=== PATIENT | female | born 1955 | race Caucasian/White ===

== ENCOUNTER 2018-02-26 15:53 | Inpatient (IN) ==
[2018-02-26] MEDS ORDERED: ZOFRAN IV PRN (16:45)
[2018-02-26] MEDS: NS 1,000 ML IV SCH (18:36)
--- NOTE | 2018-02-26 19:39 | Diag Imaging Result Doc PS360 ---
EXAM: CT ABD/PELVIS W/PO AND IV CON INDICATION: Intractable RUQ pain/ fever/ leukocytosis TECHNIQUE: This exam was performed using automated exposure control, adjustment of mA or kV according to patient size, and/or use of iterative reconstruction technique. COMPARISON: None. FINDINGS: There is diverticulosis throughout the colon, and there is a short segment of the colon at the hepatic flexure that exhibits marked thickening and severe pericolonic inflammatory stranding. This appears to be emanating from a diverticulum and is consistent with acute diverticulitis. There is a solitary tiny droplet of gas at the tip of the diverticulum. It is unclear if this is intraluminal gas. A small microperforation is possible, however. No other free abdominal gas is appreciated and no well organized abscess is identified. The GI tract is essentially unremarkable, otherwise. The liver, gallbladder, spleen, pancreas, adrenal glands, kidneys, and urinary bladder are essentially unremarkable. There is a coarsely calcified nodule at the uterine fundus consistent with a small calcified uterine fibroid. The reproductive tract is essentially unremarkable, otherwise. The urinary bladder is unremarkable. There is trace free fluid layering in the pelvis. IMPRESSION: 1.Severe right-sided colonic diverticulitis at the hepatic flexure with a tiny droplet of gas near the end of the inflamed diverticulum. Although questionable, it could be extraluminal suggesting a microperforation. 2.Other external/nonacute findings detailed above. Electronically signed by Carlos Ramírez 02/26/2018 7:37 PM
[2018-02-26] MEDS ORDERED: MORPHINE IV PRN (20:11)
[2018-02-26] MEDS: ZOSYN 3.375 GM in NS 50 ML IV SCH (21:08)
[2018-02-26] MEDS: TYLENOL PO PRN (21:20)
[2018-02-26] MEDS: HUMALOG SUBQ SCH (21:26)
--- NOTE | 2018-02-26 21:30 | HISTORY AND PHYSICAL ---
PRIMARY CARE PHYSICIAN: Dr. Anil Nunez. CHIEF COMPLAINT: Intractable abdominal pain. HISTORY OF PRESENT ILLNESS: 62-year-old white female with past medical history significant for diabetes, hypertension, hypertriglyceridemia, hyperlipidemia, and low HDL presents for evaluation of above-mentioned symptoms. Current history of present illness began on Thursday night. At that time, patient states she developed right upper quadrant pain. The pain persisted but was reasonably controlled throughout the day Thursday. Yesterday pain increased. She developed low- grade fevers. The patient considered emergency department evaluation yesterday evening, but opted for evaluation in clinic today. Throughout the day today, patient stated she continued to have low-grade fevers as well as abdominal discomfort. She has had mild nausea but denies vomiting. The pain is increased with flexion at the waist and movement. She denies a specific associated with eating, but does note anorexia over this last several days. She has had similar episodes in the past, but none to this degree. She denies a change in bowel movements, hematochezia, melena, hematuria, pyuria, and urinary frequency. Because of patient's condition, patient was seen in the office today. Because of intractable abdominal discomfort, she was immediately admitted. CT scan was performed revealing acute diverticulitis. Patient will be admitted to the hospital for full evaluation and management of this condition. PAST MEDICAL HISTORY: 1. Allergic rhinitis. 2. Anxiety. 3. Type 2 diabetes. 4. Metabolic syndrome. 5. History of transaminitis secondary to nonalcoholic fatty liver disease. 6. Hypertension. 7. Hypertriglyceridemia. 8. Hyperlipidemia. 9. Irritable bowel syndrome. 10. Low HDL. 11. Osteopenia. 12. Overweight. 13. History of colonic polyps. 14. History of appendectomy in 1965. CURRENT MEDICATIONS: 1. Calcium plus vitamin D once daily. 2. Fluticasone nasal spray 2 sprays each nostril daily as needed. 3. Metformin ER 500 mg daily. 4. Singulair 10 mg daily as needed. 5. Nystatin powder as needed. 6. Rosuvastatin 5 mg daily. ALLERGIES: Patient states she is allergic to Lipitor, losartan, and simvastatin. SOCIAL HISTORY: The patient denies tobacco and illicit drug use. She has approximately 4 drinks per year. 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 She enjoys reading, hinduism, and guarding. She does not exercise routinely. FAMILY HISTORY: Patient's father passed at age 78 secondary to complications of nonalcoholic cirrhosis. He had a history of an acute myocardial infarction at age 66, stroke at age 66 with loss of eyesight and diabetes. Patient's mother passed at age 70 secondary to complications of an unknown cause. She had a history of lymphoma and arrhythmia. REVIEW OF SYSTEMS: A 12 point review of systems was performed. Pertinent positives and negatives noted in history present illness. PHYSICAL EXAMINATION: Temperature 100.8 degrees, heart rate 107, respirations 16, blood pressure is 133/74. GENERAL: Well nourished, well developed, no acute distress. HEENT: Normocephalic, atraumatic. Pupils equal, round, reactive to light. Extraocular muscles intact. Sclerae anicteric. [place] conjunctivae. Oral and nasopharynx clear without exudate. NECK: Supple. No lymphadenopathy. No thyromegaly. No bruits auscultated. CARDIOVASCULAR: Slightly tachycardic. Regular rhythm. No significant murmurs, rubs, or gallops. PULMONARY: Clear to auscultation bilaterally. ABDOMEN: Soft. Significant tenderness in the right upper quadrant with guarding, but no rebound. Decreased bowel sounds. EXTREMITIES: Moves all extremities well. No significant clubbing, cyanosis, or edema. NEUROLOGIC: Cranial nerves 2-12 grossly intact. Motor and sensory grossly intact. PSYCHOLOGIC: Appropriate. LABORATORY DATA: White blood cell count 15.6, hemoglobin 14.1, hematocrit 45.1, platelet count 191,000. Sodium 135, potassium 4.6, chloride 100, bicarb 27, BUN 8, creatinine 0.5, glucose 101, calcium 9.7, total bilirubin 1.4, total protein 7.2, albumin 4.3, alkaline phosphatase 89, AST 13, ALT 27. Urinalysis revealed 3+ leukocytes, large ketones, rare bacteria. CT scan of the abdomen and pelvis revealed severe right-sided colonic diverticulitis at the hepatic flexure with a tiny droplet of gas near the end of the inflamed diverticulum. Although questionable, it could be extraluminal suggesting a micro perforation. ASSESSMENT AND PLAN: 62-year-old white female presented to my office with intractable abdominal discomfort. Full evaluation revealed low-grade fever, tachycardia, leukocytosis, and CT scan suggestive of severe right-sided colonic diverticulitis with possible micro perforation. Patient will be admitted to the hospital for full evaluation and management of this condition. 1. Admit to General Medicine. 2. Severe right-sided colonic diverticulitis with possible micro perforation-at present time, patient is clinically stable. We will initiate aggressive medical intervention including Zosyn, hydration, and as needed pain medications. We will place patient n.p.o. for now. We will consult Dr. Cuellar in the morning. At this point, an emergent surgical intervention is not warranted. The patient may, however, require surgical intervention in the near future if she does not achieve rapid resolution. 3. Hypertension-patient has been treated with amlodipine in the past. For now, we will hold this. 4. Diabetes-we will hold patient's metformin for now. We will start patient on sliding scale insulin. 5. Hyperlipidemia-we will hold patient's rosuvastatin for now. 6. Fluid, electrolytes, nutrition-we will monitor electrolytes. Normal saline at 75 mL an hour, n.p.o. 7. Prophylaxis. The patient will be placed on SCDs. Once surgery has been ruled out, we will initiate Lovenox therapy. cc: Anil Nunez MD
[2018-02-27] MEDS: ZOSYN 3.375 GM in NS 50 ML IV SCH ×4 (01:27→20:35)
[2018-02-27 06:06] LABS: BASO# 0.03 X1000 (0.0-0.2); BASO% 0.3 % (0.0-0.8); EOS# 0.17 X1000 (0.0-0.7); EOS% 1.9 % (0.0-10.0); HEMATOCRIT 39.9 % (37.0-47.0); HEMOGLOBIN 12.7 g/dL (12.0-16.0); IMM GRAN# 0.02 X1000 (0.0-0.04); IMM GRAN% 0.2 % (0.0-0.5); LYMPH# 1.93 X1000 (1.2-3.4); LYMPH% 21.4 % (20.5-51.1); MCH 27.7 PG (27-31); MCHC 31.8 g/dL (33-37); MCV 86.9 FL (81-99); MONO# 0.51 X1000 (0.11-0.59); MONO% 5.6 % (1.7-9.3); MPV 10.2 FL (7.4-10.4); NEUT# 6.37 X1000 (1.4-6.5); NEUT% 70.6 % (42.2-75.2); PLT 179 X1000 (130-400); RBC 4.59 XMIL (4.2-5.4); RDW 14.6 % (11.5-14.5); WBC 9.03 X1000 (4.8-10.8)
[2018-02-27 06:09] LABS: INR 1.1; PROTIME 15.1 Seconds (11.0-16.0)
[2018-02-27 06:10] LABS: PTT 39.3 Seconds (22.3-41.8)
[2018-02-27] MEDS: HUMALOG SUBQ SCH ×3 (06:35→17:35)
[2018-02-27 06:38] LABS: AGAP 13; ALB/GLOB RATIO 1.4; ALKALINE PHOSPHATASE 93 U/L (32-104); BUN 9 mg/dL (8-22); CALCIUM 8.8 mg/dL (8.8-10.2); CHLORIDE 103 mmol/L (98-107); COSMO 278; CREATININE 0.7 mg/dL (0.5-0.9); ESTIMATED GFR > 60; GLUCOSE 90 mg/dL (70-104); GOT 14 U/L (10-30); GPT 21 U/L (10-36); POTASSIUM 4.1 mmol/L (3.5-5.1); SODIUM 140 mmol/L (136-145); TCO2 24 mmol/L (25-35); TOTAL BILIRUBIN 1.45 mg/dL (0.20-1.00); TOTAL PROTEIN 6.8 g/dL (6.3-8.3)
[2018-02-27] MEDS: LOVENOX SUBQ SCH (11:51)
[2018-02-27] MEDS: NS 1,000 ML IV SCH (11:51)
[2018-02-27] MEDS: SINGULAIR PO SCH (11:51)
--- NOTE | 2018-02-27 18:30 | CONSULTATION ---
DATE OF CONSULTATION: 02/27/2018 Miss Samantha Sevilla is a 62-year-old white female patient Dr. Anil Nunez who has been experiencing right upper quadrant abdominal pain and some distention. She was evaluated with a CT scan of her abdomen and pelvis which suggested acute diverticulitis at the hepatic flexure with possible droplet of free air. We were asked to evaluate her. It must be noted that her pain began earlier in the week and it just persisted causing her to be evaluated by Dr. Nunez when she was admitted because of her complicated acute diverticulitis. PAST MEDICAL HISTORY: Type 2 diabetes, fatty liver disease, hypertension, hypertriglyceridemia, hyperlipidemia, obesity, history of appendectomy 1964. MEDICATIONS: Calcium, metformin, Singulair, Nystatin powder and a statin drug. ALLERGIES: Lipitor, losartan and simvastatin. SOCIAL HISTORY: Her is at the bedside. Evidently she has a child that is been operated on for diverticulitis. REVIEW OF SYSTEMS: A 14-point review of systems was performed and was essentially negative except for the history of present illness. PHYSICAL EXAM: General: Ms. Sevilla does not look acutely ill. She is sitting up in her chair at her bedside. She is awake, cooperative. HEENT: No jaundice. No oral lesions. Satisfactory dentition. No cervical or supraclavicular lymphadenopathy. She has telemetry in place. Heart: Has a regular rate. Lungs: Clear. Abdomen: Was mildly tender in the right upper quadrant slightly distended but not tightly so. Rectal exam was not performed. She does have palpable peripheral pulses. No peripheral edema. Neurologic: She is alert and oriented x3 and appropriate. LABS: Her white blood cell count is normal this morning, hematocrit is 40%. Coagulations within normal limits as are her electrolytes. PLAN: She will be given a diet of liquids and her IV Zosyn continues. She has clinically improved overnight. cc: MD Anil Youssef MD
[2018-02-27] MEDS: TYLENOL PO PRN (20:43)
[2018-02-28] MEDS: NS 1,000 ML IV SCH ×2 (03:41→17:58)
[2018-02-28] MEDS: ZOSYN 3.375 GM in NS 50 ML IV SCH ×4 (05:47→22:45)
[2018-02-28] MEDS: HUMALOG SUBQ SCH ×4 (06:47→22:44)
[2018-02-28] MEDS: SINGULAIR PO SCH (09:54)
[2018-02-28] MEDS: LOVENOX SUBQ SCH (09:54)
[2018-02-28] MEDS: COLACE PO SCH ×2 (09:56→22:44)
--- NOTE | 2018-02-28 10:32 | PROGRESS NOTE ---
DATE: 02/28/2018 SUBJECTIVE: Samantha Sevilla is a 62-year-old white female, patient of Dr. Anil Nunez, who has been admitted with diverticulitis in the hepatic flexure of her colon. There might be a microperforation. She has been placed on IV antibiotics, and clinically she has improved since admission. Her heart rate is 72, blood pressure 109/59, O2 saturation 97%, she is afebrile. She still has some tenderness in the right upper quadrant on exam. She was started on a GI soft diet yesterday per Dr. Nunez. IV Zosyn continues. cc: MD Anil Youssef MD
--- NOTE | 2018-02-28 12:48 | PROGRESS NOTE ---
DATE: 02/28/2018 SUBJECTIVE: Overall, the patient states she continues to do reasonably well. She has, however, developed an increase in pain in her right upper quadrant. The patient tolerated a full liquid diet yesterday. She denies fevers, chills, nausea, vomiting, shortness of breath, or chest discomfort. OBJECTIVE: Temperature maximum 98.3 degrees. Heart rate 65 to 72. Respirations 14 to 20. Blood pressure 100 to 117 over 58 to 59. General: Well nourished, well developed, in no acute distress. Cardiovascular: Regular rate and rhythm. No significant murmurs, rubs, or gallops. Pulmonary: Clear to auscultation bilaterally. Abdomen: Soft. Tenderness in the right upper quadrant with guarding. No rebound. Positive bowel sounds. Extremities: Moves all extremities well. No significant clubbing, cyanosis, or edema. Dermatologic: Evaluation reveals no evidence of rash. LABORATORY DATA: None. ASSESSMENT AND PLAN: 1. Severe right-sided colonic diverticulitis with possible microperforation. -- In the setting of increasing abdominal discomfort, I do not feel discharge is appropriate at the present time. For now, we will continue Zosyn and hydration. She has morphine to be used if necessary. We will advance diet to a GI soft. We will consider discharge home in the morning, depending on her clinical response. 2. Hypertension. -- The patient's blood pressure is controlled without medical intervention. 3. Diabetes. -- The patient's metformin has been held. Blood sugars are reasonably controlled with sliding scale insulin. 4. Hyperlipidemia. -- We will continue to hold the patient's rosuvastatin for now. We will plan to resume this at discharge. 5. Disposition. -- At this point, the patient continues to require senior living care in a hospital setting. We will plan discharge home once appropriate. cc: Anil Nunez MD
[2018-03-01] MEDS: ZOSYN 3.375 GM in NS 50 ML IV SCH ×2 (05:55→08:51)
[2018-03-01] MEDS: HUMALOG SUBQ SCH (06:21)
[2018-03-01 07:38] VITALS: BP 125/64
--- NOTE | 2018-03-01 08:07 | PROGRESS NOTE ---
DATE: 03/01/2018 SUBJECTIVE: Ms. Samantha Sevilla is hospitalized for diverticulitis at the hepatic flexure. She still had some tenderness in the right upper quadrant yesterday. She continues to receive IV Zosyn. Her last white blood cell count was within normal limits. She ate about 50% of her meals yesterday. She did have one bowel movement yesterday. She is sleeping this morning and I did not wake her. OBJECTIVE: Her heart rate 77, blood pressure 125/64, O2 saturation 100%. She is afebrile on IV Zosyn. PLAN: I agree with IV antibiotics. She is on a GI soft diet. Her white blood cell count last checked was within normal limits. I feel that if she clinically continues to improve. She will be discharged per Dr. Nunez on p.o. antibiotics. If her symptoms persist, we need to think about resection. cc: MD Anil Youssef MD
[2018-03-01] MEDS: COLACE PO SCH (08:47)
[2018-03-01] MEDS: SINGULAIR PO SCH (08:47)
--- NOTE | 2018-03-02 06:32 | DISCHARGE SUMMARY ---
ADMISSION DATE: 02/26/2018 DISCHARGE DATE: 03/01/2018 ADMISSION DIAGNOSIS: Intractable abdominal pain. DISCHARGE DIAGNOSES: 1. Severe right-sided colonic diverticulosis with possible micro perforation, improved clinically. 2. Hypertension present on arrival. 3. Diabetes, present on arrival. 4. Hyperlipidemia, present on arrival. CONSULTATIONS: Dr. Cuellar with General Surgery was consulted for further evaluation and management of diverticulitis with microperforation. PROCEDURES: CT scan of the abdomen and pelvis was performed on 02/26/2018 which revealed severe right-sided colonic diverticulitis at the hepatic flexure with a tiny droplet of gas near the end of the inflamed diverticulum. Although questionable, it could be extraluminal suggesting a micro perforation. HISTORY AND PHYSICAL EXAMINATION: See admit note. Vital Signs: Physical examination prior to discharge, temperature 98.1 degrees, heart rate 77, respirations 16, and blood pressure is 125/64. General: Well nourished, well developed in no acute distress. Cardiovascular: Regular rate and rhythm. No significant murmurs, rubs, or gallops. Pulmonary: Clear to auscultation bilaterally. Abdomen: Soft. Mild tenderness in the right upper quadrant, improved from admission. Positive bowel sounds. Extremities: Moves all extremities well. No significant clubbing, cyanosis, or edema. Dermatologic: Evaluation reveals no evidence of rash. LABORATORY DATA: Prior to discharge, none. HOSPITAL COURSE: The patient was admitted as per history and physical examination. Hospital course per condition is as follows: 1. Severe right-sided colonic diverticulitis with possible microperforation-Upon admission, patient was immediately placed on Zosyn therapy. The patient tolerated this quite well. Throughout hospitalization, her abdominal discomfort decreased considerably. At time of discharge, she noted only mild right upper quadrant pain. She has had no evidence of fever. She is passing flatus and having normal bowel movements. The patient will be discharged with 11 additional days of ciprofloxacin and Flagyl therapy. We will monitor patient's clinical course very closely. Should she develop any recurrence of symptoms, we will have a low threshold for surgical intervention. 2. Hypertension. Patient's blood pressure remained adequately controlled without medical intervention while hospitalized. 3. Diabetes-Patient's metformin was held while hospitalized. Her blood sugars remained reasonably controlled. We will continue to hold metformin as an outpatient. 4. Hyperlipidemia-Patient's rosuvastatin therapy was held while hospitalized. We will resume this at discharge. DISCHARGE CONDITION: Good. DISPOSITION: Discharged to home. MEDICATIONS: 1. Acetaminophen 650 mg every 4 hours as needed. 2. Ciprofloxacin 500 mg twice daily for 11 days. 3. Colace 100 mg twice daily. 4. Flagyl 500 mg every 8 hours for 11 days. 5. Singulair 10 mg daily. 6. Rosuvastatin 10 mg at bedtime. FOLLOWUP: The patient is to follow up with me in approximately 1 week. cc: Anil Nunez MD
== END 2018-03-01 10:30 | disposition home or self-care (01) | DRG 392 ==
LOC: DIRADM → OBSVTOIN 15:53 → 4N 16:28
PROVIDERS: ADMIT Internal Medicine; ATTEND Internal Medicine
CPT/HCPCS: 74177; 80053; 82948; 85025; 85610; 85730; 94799; A9270; J1650; J2543; J7030; Q9967; XXXXX